=== PATIENT | male | born 1990 | race Caucasian/White ===

== ENCOUNTER → 2016-05-19 | Outpatient (CLI) | payer OTHER ==
[~2016-05-19] MED LIST: ACET-654 PO; FLOM5CAP PO; PERC5TAB6 PO
[2016-05-19 11:23] LABS: CALCIUM LEVEL 9.1 MG/DL (8.5-10.1); CREATININE FOR GFR 4.54 MG/DL (0.70-1.30); GLOMERULAR FILTRATION RATE 16.6 (>60); POTASSIUM SERUM 3.8 MEQ/L (3.5-5.1)
== END ==
LOC: M LAB 10:06
PROVIDERS: ATTEND Registered Nurse
DX: N18.5 Chronic kidney disease, stage 5 (principal)

== ENCOUNTER → 2016-05-19 | Outpatient (CLI) | payer OTHER | LOC: M LAB 10:02 | PROVIDERS: ATTEND Physician Assistant Medical | DX: N18.4 Chronic kidney disease, stage 4 (severe) (principal) ==

== ENCOUNTER → 2016-06-29 | Outpatient (CLI) | payer OTHER | LOC: M LAB 13:11 | PROVIDERS: ATTEND Registered Nurse | DX: N18.5 Chronic kidney disease, stage 5 (principal) ==

== ENCOUNTER → 2016-06-29 | Outpatient (CLI) | payer OTHER ==
[2016-06-29 14:20] LABS: CALCIUM LEVEL 9.4 MG/DL (8.5-10.1); CREATININE FOR GFR 4.71 MG/DL (0.70-1.30); POTASSIUM SERUM 3.4 MEQ/L (3.5-5.1)
== END ==
LOC: M LAB 13:14
PROVIDERS: ATTEND Physician Assistant Medical
DX: N18.4 Chronic kidney disease, stage 4 (severe) (principal)

== ENCOUNTER 2016-08-07 04:12 | Emergency (ER) | payer OTHER ==
[~2016-08-07] VITALS: Ht 177.8 cm; Wt 68.0 kg
[2016-08-07] MEDS ORDERED: OXYCODONE/APAP 5MG/325MG(BULK FOR ED) 1 TABLET PO ONE (05:30)
[2016-08-07] MEDS ORDERED: METHOCARBAMOL 500 MG TAB PO ONE (05:30)
[2016-08-07] MEDS ORDERED: predniSONE 20 MG TAB PO ONE (05:30)
[2016-08-07 05:54] VITALS: BP 128/72
== END 2016-08-07 05:57 | disposition home or self-care (01) ==
LOC: M ED 05:15
DX: M54.31 Sciatica, right side (principal)

== ENCOUNTER → 2016-11-12 | Outpatient (CLI) | payer OTHER ==
[~2016-11-12] MED LIST changes: -ACET-654 PO; +ACET1TAB17 PO; +PERC5TAB12 PO; -PERC5TAB6 PO
[2016-11-12 15:10] LABS: CALCIUM LEVEL 9.2 MG/DL (8.5-10.1); CREATININE FOR GFR 5.21 MG/DL (0.70-1.30); GLOMERULAR FILTRATION RATE 14.2 (>60); POTASSIUM SERUM 3.7 MEQ/L (3.5-5.1)
== END ==
LOC: M LAB 14:20
PROVIDERS: ATTEND Physician Assistant Medical
DX: N18.4 Chronic kidney disease, stage 4 (severe) (principal)

== ENCOUNTER → 2016-11-12 | Outpatient (CLI) | payer OTHER | LOC: M LAB 14:04 | PROVIDERS: ATTEND Registered Nurse | DX: N18.9 Chronic kidney disease, unspecified (principal) ==

== ENCOUNTER → 2017-01-25 | Outpatient (CLI) | payer OTHER | LOC: M LAB 13:23 | PROVIDERS: ATTEND Registered Nurse | DX: N18.4 Chronic kidney disease, stage 4 (severe) (principal); Z76.82 Awaiting organ transplant status ==

== ENCOUNTER → 2017-01-25 | Outpatient (CLI) | payer OTHER ==
[2017-01-25 14:32] LABS: CALCIUM LEVEL 9.2 MG/DL (8.5-10.1); CREATININE FOR GFR 4.84 MG/DL (0.70-1.30); GLOMERULAR FILTRATION RATE 15.5 (>60); POTASSIUM SERUM 3.7 MEQ/L (3.5-5.1)
== END ==
LOC: M LAB 13:28
PROVIDERS: ATTEND Physician Assistant Medical
DX: N18.4 Chronic kidney disease, stage 4 (severe) (principal)

== ENCOUNTER → 2017-05-07 | Outpatient (CLI) | payer OTHER | LOC: M LAB 10:06 | DX: Z94.0 Kidney transplant status (principal) | CPT/HCPCS: 36415 ==

== ENCOUNTER → 2017-05-07 | Outpatient (CLI) | payer OTHER ==
[2017-05-07 11:09] LABS: ANION GAP 8 MEQ/L (8-16); BLOOD UREA NITROGEN 42 MG/DL (7-18); CALCIUM LEVEL 8.8 MG/DL (8.5-10.1); CARBON DIOXIDE LEVEL 26 MEQ/L (21-32); CHLORIDE LEVEL 107 MEQ/L (98-107); CREATININE FOR GFR 4.85 MG/DL (0.70-1.30); GLOMERULAR FILTRATION RATE 15.3 (>60); GLUCOSE, FASTING 98 MG/DL (70-105); POTASSIUM SERUM 3.3 MEQ/L (3.5-5.1); SODIUM LEVEL 141 MEQ/L (136-145)
== END ==
LOC: M LAB 10:11
DX: N18.4 Chronic kidney disease, stage 4 (severe) (principal)
CPT/HCPCS: 80048

== ENCOUNTER → 2017-07-02 | Outpatient (CLI) | payer OTHER ==
[2017-07-02 15:49] LABS: ANION GAP 8 MEQ/L (8-16); BLOOD UREA NITROGEN 45 MG/DL (7-18); CALCIUM LEVEL 8.9 MG/DL (8.5-10.1); CARBON DIOXIDE LEVEL 27 MEQ/L (21-32); CHLORIDE LEVEL 106 MEQ/L (98-107); CREATININE FOR GFR 4.62 MG/DL (0.70-1.30); GLOMERULAR FILTRATION RATE 16.2 (>60); GLUCOSE, FASTING 95 MG/DL (70-100); POTASSIUM SERUM 3.7 MEQ/L (3.5-5.1); SODIUM LEVEL 141 MEQ/L (136-145)
== END ==
LOC: M LAB 14:31
DX: N18.4 Chronic kidney disease, stage 4 (severe) (principal)
CPT/HCPCS: 80048

== ENCOUNTER → 2017-07-02 | Outpatient (CLI) | payer OTHER | LOC: M LAB 14:26 | DX: Z76.82 Awaiting organ transplant status (principal); N18.9 Chronic kidney disease, unspecified ==

== ENCOUNTER → 2017-08-05 | Outpatient (CLI) | payer OTHER ==
[2017-08-05 18:37] LABS: ANION GAP 7 MEQ/L (8-16); BLOOD UREA NITROGEN 49 MG/DL (7-18); CALCIUM LEVEL 8.7 MG/DL (8.5-10.1); CARBON DIOXIDE LEVEL 27 MEQ/L (21-32); CHLORIDE LEVEL 108 MEQ/L (98-107); CREATININE FOR GFR 4.14 MG/DL (0.70-1.30); GLOMERULAR FILTRATION RATE 18.4 (>60); GLUCOSE, FASTING 109 MG/DL (70-100); POTASSIUM SERUM 3.5 MEQ/L (3.5-5.1); SODIUM LEVEL 142 MEQ/L (136-145)
== END ==
LOC: M LAB 16:52
DX: N18.4 Chronic kidney disease, stage 4 (severe) (principal)
CPT/HCPCS: 80048

== ENCOUNTER → 2017-08-10 | Outpatient (CLI) | payer OTHER | LOC: M LAB 18:22 | DX: N18.9 Chronic kidney disease, unspecified (principal) | CPT/HCPCS: 36415 ==

== ENCOUNTER → 2017-10-01 | Outpatient (CLI) | payer OTHER | LOC: M LAB 09:55 | DX: N18.5 Chronic kidney disease, stage 5 (principal) | CPT/HCPCS: 36415 ==

== ENCOUNTER → 2017-12-29 | Outpatient (CLI) | payer OTHER | LOC: M LAB 14:57 | DX: N18.5 Chronic kidney disease, stage 5 (principal) | CPT/HCPCS: 99001 ==

== ENCOUNTER → 2018-03-02 | Outpatient (CLI) | payer OTHER ==
[2018-03-02 15:00] LABS: AMORPHOUS SEDIMENT SMALL (NEGATIVE); APPEARANCE, URINE CLEAR (CLEAR); BACTERIA, URINE AUTO NEGATIVE (NEGATIVE); BILIRUBIN, URINE AUTO NEGATIVE (NEGATIVE); BLOOD, URINE BLOOD 1+ (NEGATIVE); COLOR, URINE STRAW (YELLOW); GLUCOSE, URINE (UA) AUTO 2+ mg/dL (NEGATIVE); KETONE, URINE AUTO TRACE mg/dL (NEGATIVE); LEUKOCYTE ESTERASE, URINE AUTO NEGATIVE (NEGATIVE); MUCUS, URINE SMALL (NEGATIVE); NITRITE, URINE AUTO NEGATIVE (NEGATIVE); PROTEIN, URINE AUTO 2+ mg/dL (NEGATIVE); RBC, URINE AUTO 1 /HPF (0-3); SPECIFIC GRAVITY URINE AUTO 1.009 (1.002-1.035); SQUAMOUS EPITHELIAL CELL UR AU 0 /HPF (0-6); UROBILINOGEN, URINE AUTO 0.2 mg/dL (0.0-2.0); WBC, URINE AUTO 0 /HPF (0-3)
[2018-03-02 15:07] LABS: ANION GAP 9 MEQ/L (8-16); BLOOD UREA NITROGEN 36 MG/DL (7-18); CALCIUM LEVEL 9.2 MG/DL (8.5-10.1); CARBON DIOXIDE LEVEL 25 MEQ/L (21-32); CHLORIDE LEVEL 107 MEQ/L (98-107); CREATININE FOR GFR 5.37 MG/DL (0.70-1.30); CREATININE,RANDOM URINE 64.3 MG/DL; GLOMERULAR FILTRATION RATE 13.6 (>60); GLUCOSE, FASTING 112 MG/DL (70-100); POTASSIUM SERUM 3.6 MEQ/L (3.5-5.1); SODIUM LEVEL 141 MEQ/L (136-145)
[2018-03-02 16:20] LABS: PTH INTACT 67.5 PG/ML (18.5-88.0)
== END ==
LOC: M LAB 13:42
DX: N18.9 Chronic kidney disease, unspecified (principal)
CPT/HCPCS: 82570

== ENCOUNTER → 2018-03-02 | Outpatient (CLI) | payer OTHER | LOC: M LAB 13:49 | DX: N18.5 Chronic kidney disease, stage 5 (principal) ==

== ENCOUNTER → 2018-06-21 | Outpatient (CLI) | payer MEDICAID, OTHER, SELFPAY ==
[~2018-06-21] MED LIST changes: -ACET1TAB17 PO; +ACET1TAB55 PO; +FLOM0.4C39 PO; -FLOM5CAP PO
== END ==
LOC: M LAB 13:33
PROVIDERS: ATTEND Physician Assistant Surgical
DX: N18.5 Chronic kidney disease, stage 5 (principal)

== ENCOUNTER → 2018-09-09 | Outpatient (CLI) | payer OTHER ==
[2018-09-09 12:42] LABS: CALCIUM LEVEL 9.2 MG/DL (8.5-10.1); CREATININE FOR GFR 4.3 MG/DL (0.70-1.30); GLOMERULAR FILTRATION RATE 17.5 (>60); POTASSIUM SERUM 3.2 MEQ/L (3.5-5.1)
== END ==
LOC: M LAB 11:41
PROVIDERS: ATTEND Internal Medicine
DX: N18.5 Chronic kidney disease, stage 5 (principal)

== ENCOUNTER → 2018-09-09 | Outpatient (CLI) | payer OTHER | LOC: M LAB 11:45 | PROVIDERS: ATTEND Physician Assistant Surgical | DX: Z53.9 Procedure and treatment not carried out, unspecified reason (principal); N18.5 Chronic kidney disease, stage 5 ==

== ENCOUNTER → 2019-07-28 | Outpatient (REF) | payer OTHER ==
[2019-07-28 12:44] LABS: HEMATOCRIT 32.9 % (42.0-52.0); HEMOGLOBIN 10.9 g/dl (13.5-17.5); MEAN CORPUSCULAR HEMOGLOBIN 31.9 pg (27.0-33.0); MEAN CORPUSCULAR HGB CONC 33.1 g/dl (32.0-36.5); MEAN CORPUSCULAR VOLUME 96.2 fl (80.0-96.0); PLATELET COUNT, AUTOMATED 237 10^3/uL (150-450); RED BLOOD COUNT 3.42 10^6/uL (4.30-6.10)
[2019-07-28 13:11] LABS: ALBUMIN 4.1 GM/DL (3.2-5.2); BILIRUBIN,TOTAL 0.3 MG/DL (0.2-1.0); CALCIUM LEVEL 8.5 MG/DL (8.5-10.1); CREATININE FOR GFR 5.42 MG/DL (0.70-1.30); GLOMERULAR FILTRATION RATE 13.3 (>60); POTASSIUM SERUM 3.8 MEQ/L (3.5-5.1); TOTAL PROTEIN 7.4 GM/DL (6.4-8.2)
== END ==
LOC: M SFHCADAM 09:38
PROVIDERS: ATTEND Family Medicine
DX: N39.0 Urinary tract infection, site not specified (principal); N18.4 Chronic kidney disease, stage 4 (severe); Q61.5 Medullary cystic kidney

== ENCOUNTER → 2019-08-11 | Outpatient (REF) | payer OTHER ==
[2019-08-11 21:42] LABS: HEMATOCRIT 32.1 % (42.0-52.0); HEMOGLOBIN 10.5 g/dl (13.5-17.5); MEAN CORPUSCULAR HEMOGLOBIN 31.5 pg (27.0-33.0); MEAN CORPUSCULAR HGB CONC 32.7 g/dl (32.0-36.5); MEAN CORPUSCULAR VOLUME 96.4 fl (80.0-96.0); PLATELET COUNT, AUTOMATED 261 10^3/uL (150-450); RED BLOOD COUNT 3.33 10^6/uL (4.30-6.10)
[2019-08-11 22:09] LABS: CALCIUM LEVEL 8.7 MG/DL (8.5-10.1); CREATININE FOR GFR 5.32 MG/DL (0.70-1.30); GLOMERULAR FILTRATION RATE 13.6 (>60)
== END ==
LOC: M LABDRWAD 09:26
PROVIDERS: ATTEND Physician Assistant Medical
DX: N18.4 Chronic kidney disease, stage 4 (severe) (principal); D63.1 Anemia in chronic kidney disease

== ENCOUNTER → 2019-10-18 | Outpatient (CLI) | payer OTHER | LOC: M LAB 14:29 | PROVIDERS: ATTEND Internal Medicine Nephrology | DX: N18.6 End stage renal disease (principal) ==

== ENCOUNTER → 2019-12-15 | Outpatient (CLI) | payer OTHER | LOC: M LAB 12:12 | PROVIDERS: ATTEND Internal Medicine Nephrology | DX: Z53.9 Procedure and treatment not carried out, unspecified reason (principal) ==

== ENCOUNTER → 2019-12-15 | Outpatient (CLI) | payer OTHER ==
[2020-01-13 01:18] LABS: HEMATOCRIT 36.7 % (42.0-52.0); HEMOGLOBIN 12.2 g/dl (13.5-17.5); MEAN CORPUSCULAR HEMOGLOBIN 31.2 pg (27.0-33.0); MEAN CORPUSCULAR HGB CONC 33.2 g/dl (32.0-36.5); MEAN CORPUSCULAR VOLUME 93.9 fl (80.0-96.0); PLATELET COUNT, AUTOMATED 274 10^3/uL (150-450); RED BLOOD COUNT 3.91 10^6/uL (4.30-6.10); WHITE BLOOD COUNT 8.7 10^3/uL (4.0-10.0)
[2020-01-31 04:44] LABS: CREATININE FOR GFR 5.28 MG/DL (0.70-1.30); GLOMERULAR FILTRATION RATE 13.7 (>60); POTASSIUM SERUM 3.7 MEQ/L (3.5-5.1)
== END ==
LOC: M LAB 12:12
PROVIDERS: ATTEND Physician Assistant Medical
DX: N18.4 Chronic kidney disease, stage 4 (severe) (principal)

== ENCOUNTER → 2020-01-25 | Outpatient (CLI) | payer OTHER ==
[2020-01-25 13:37] LABS: HEMATOCRIT 35.9 % (42.0-52.0); HEMOGLOBIN 11.8 g/dl (13.5-17.5); MEAN CORPUSCULAR HEMOGLOBIN 31.5 pg (27.0-33.0); MEAN CORPUSCULAR HGB CONC 32.9 g/dl (32.0-36.5); MEAN CORPUSCULAR VOLUME 95.7 fl (80.0-96.0); PLATELET COUNT, AUTOMATED 255 10^3/uL (150-450); RED BLOOD COUNT 3.75 10^6/uL (4.30-6.10); WHITE BLOOD COUNT 5.9 10^3/uL (4.0-10.0)
[2020-01-25 14:05] LABS: CALCIUM LEVEL 9.1 MG/DL (8.5-10.1); CREATININE FOR GFR 5.54 MG/DL (0.70-1.30)
== END ==
LOC: M LAB 13:09
PROVIDERS: ATTEND Physician Assistant Medical
DX: N18.4 Chronic kidney disease, stage 4 (severe) (principal)

== ENCOUNTER → 2020-01-25 | Outpatient (CLI) | payer OTHER | LOC: M LAB 13:12 | PROVIDERS: ATTEND Internal Medicine Nephrology | DX: N18.6 End stage renal disease (principal) ==

== ENCOUNTER → 2020-02-21 | Outpatient (CLI) | payer OTHER ==
[2020-02-21 12:45] LABS: HEMATOCRIT 35.3 % (42.0-52.0); HEMOGLOBIN 11.9 g/dl (13.5-17.5); MEAN CORPUSCULAR HGB CONC 33.7 g/dl (32.0-36.5); MEAN CORPUSCULAR VOLUME 94.9 fl (80.0-96.0); PLATELET COUNT, AUTOMATED 245 10^3/uL (150-450); RED BLOOD COUNT 3.72 10^6/uL (4.30-6.10); WHITE BLOOD COUNT 5.4 10^3/uL (4.0-10.0)
[2020-02-21 13:12] LABS: CALCIUM LEVEL 9.2 MG/DL (8.5-10.1); CREATININE FOR GFR 6.42 MG/DL (0.70-1.30); GLOMERULAR FILTRATION RATE 10.9 (>60); POTASSIUM SERUM 3.9 MEQ/L (3.5-5.1)
== END ==
LOC: M LAB 12:08
PROVIDERS: ATTEND Physician Assistant Medical
DX: N18.4 Chronic kidney disease, stage 4 (severe) (principal)

== ENCOUNTER → 2020-02-21 | Outpatient (CLI) | payer OTHER | LOC: M LAB 12:05 | PROVIDERS: ATTEND Internal Medicine Nephrology | DX: N18.6 End stage renal disease (principal) ==

== ENCOUNTER → 2020-04-25 | Outpatient (CLI) | payer OTHER ==
[2020-04-25 13:50] LABS: HEMATOCRIT 34.4 % (42.0-52.0); MEAN CORPUSCULAR HEMOGLOBIN 30.5 pg (27.0-33.0); MEAN CORPUSCULAR VOLUME 95.3 fl (80.0-96.0); PLATELET COUNT, AUTOMATED 217 10^3/uL (150-450); RED BLOOD COUNT 3.61 10^6/uL (4.30-6.10); WHITE BLOOD COUNT 5.8 10^3/uL (4.0-10.0)
[2020-04-25 14:19] LABS: CALCIUM LEVEL 9.2 MG/DL (8.5-10.1); CREATININE FOR GFR 5.12 MG/DL (0.70-1.30); GLOMERULAR FILTRATION RATE 14.1 (>60); POTASSIUM SERUM 3.6 MEQ/L (3.5-5.1)
== END ==
LOC: M LAB 11:57
PROVIDERS: ATTEND Physician Assistant Medical
DX: N18.4 Chronic kidney disease, stage 4 (severe) (principal)

== ENCOUNTER → 2020-04-25 | Outpatient (CLI) | payer OTHER | LOC: M LAB 11:54 | PROVIDERS: ATTEND Physician Assistant Surgical | DX: N18.6 End stage renal disease (principal) ==

== ENCOUNTER → 2020-05-24 | Outpatient (CLI) | payer OTHER | LOC: M LAB 10:39 | PROVIDERS: ATTEND Physician Assistant Surgical | DX: Z53.9 Procedure and treatment not carried out, unspecified reason (principal); N18.6 End stage renal disease ==

== ENCOUNTER → 2020-05-24 | Outpatient (CLI) | payer OTHER | LOC: M LAB 10:42 | PROVIDERS: ATTEND Physician Assistant Medical | DX: Z53.9 Procedure and treatment not carried out, unspecified reason (principal); N18.4 Chronic kidney disease, stage 4 (severe) ==

== ENCOUNTER → 2020-05-30 | Outpatient (CLI) | payer OTHER ==
[2020-05-30 12:31] LABS: HEMOGLOBIN 11.2 g/dl (13.5-17.5); MEAN CORPUSCULAR HEMOGLOBIN 30.9 pg (27.0-33.0); MEAN CORPUSCULAR HGB CONC 32.9 g/dl (32.0-36.5); MEAN CORPUSCULAR VOLUME 93.7 fl (80.0-96.0); PLATELET COUNT, AUTOMATED 240 10^3/uL (150-450); RED BLOOD COUNT 3.63 10^6/uL (4.30-6.10); WHITE BLOOD COUNT 5.4 10^3/uL (4.0-10.0)
[2020-05-30 13:04] LABS: CALCIUM LEVEL 9.5 MG/DL (8.5-10.1); CREATININE FOR GFR 5.29 MG/DL (0.70-1.30); GLOMERULAR FILTRATION RATE 13.6 (>60); POTASSIUM SERUM 3.8 MEQ/L (3.5-5.1)
== END ==
LOC: M LAB 11:28
PROVIDERS: ATTEND Physician Assistant Medical
DX: N18.4 Chronic kidney disease, stage 4 (severe) (principal)

== ENCOUNTER → 2020-05-30 | Outpatient (CLI) | payer OTHER | LOC: M LAB 11:21 | PROVIDERS: ATTEND Physician Assistant Surgical | DX: N18.6 End stage renal disease (principal) ==

== ENCOUNTER → 2020-07-18 | Outpatient (CLI) | payer OTHER ==
[2020-07-18 12:04] LABS: HEMATOCRIT 36.1 % (42.0-52.0); MEAN CORPUSCULAR HEMOGLOBIN 31.4 pg (27.0-33.0); MEAN CORPUSCULAR HGB CONC 33.2 g/dl (32.0-36.5); MEAN CORPUSCULAR VOLUME 94.5 fl (80.0-96.0); PLATELET COUNT, AUTOMATED 240 10^3/uL (150-450); RED BLOOD COUNT 3.82 10^6/uL (4.30-6.10); WHITE BLOOD COUNT 4.9 10^3/uL (4.0-10.0)
[2020-07-18 12:26] LABS: CALCIUM LEVEL 9.1 MG/DL (8.5-10.1); CREATININE FOR GFR 5.2 MG/DL (0.70-1.30); GLOMERULAR FILTRATION RATE 13.8 (>60); POTASSIUM SERUM 4.1 MEQ/L (3.5-5.1)
== END ==
LOC: M LAB 11:00
PROVIDERS: ATTEND Internal Medicine Nephrology
DX: N18.9 Chronic kidney disease, unspecified (principal)

== ENCOUNTER → 2020-07-18 | Outpatient (CLI) | payer OTHER | LOC: M LAB 10:59 | PROVIDERS: ATTEND Physician Assistant Medical | DX: N18.4 Chronic kidney disease, stage 4 (severe) (principal); D63.1 Anemia in chronic kidney disease ==

== ENCOUNTER → 2020-10-08 | Outpatient (CLI) | payer OTHER | LOC: M LAB 13:13 | PROVIDERS: ATTEND Internal Medicine Nephrology | DX: N18.4 Chronic kidney disease, stage 4 (severe) (principal); D63.1 Anemia in chronic kidney disease ==

== ENCOUNTER → 2020-10-08 | Outpatient (CLI) | payer OTHER ==
[2020-10-08 14:03] LABS: HEMATOCRIT 32.8 % (42.0-52.0); HEMOGLOBIN 10.7 g/dl (13.5-17.5); MEAN CORPUSCULAR HEMOGLOBIN 30.7 pg (27.0-33.0); MEAN CORPUSCULAR HGB CONC 32.6 g/dl (32.0-36.5); MEAN CORPUSCULAR VOLUME 94.3 fl (80.0-96.0); PLATELET COUNT, AUTOMATED 224 10^3/uL (150-450); RED BLOOD COUNT 3.48 10^6/uL (4.30-6.10); WHITE BLOOD COUNT 4.4 10^3/uL (4.0-10.0)
[2020-10-08 14:29] LABS: CALCIUM LEVEL 8.8 MG/DL (8.5-10.1); CREATININE FOR GFR 5.6 MG/DL (0.70-1.30); GLOMERULAR FILTRATION RATE 12.7 (>60); POTASSIUM SERUM 3.3 MEQ/L (3.5-5.1)
== END ==
LOC: M LAB 13:17
PROVIDERS: ATTEND Physician Assistant Medical
DX: N18.4 Chronic kidney disease, stage 4 (severe) (principal); D63.1 Anemia in chronic kidney disease

== ENCOUNTER → 2020-11-25 | Outpatient (CLI) | payer OTHER ==
[2020-11-25 11:50] LABS: HEMATOCRIT 35.1 % (42.0-52.0); HEMOGLOBIN 11.6 g/dl (13.5-17.5); MEAN CORPUSCULAR HEMOGLOBIN 30.9 pg (27.0-33.0); MEAN CORPUSCULAR VOLUME 93.6 fl (80.0-96.0); PLATELET COUNT, AUTOMATED 229 10^3/uL (150-450); RED BLOOD COUNT 3.75 10^6/uL (4.30-6.10); WHITE BLOOD COUNT 4.6 10^3/uL (4.0-10.0)
[2020-11-25 12:16] LABS: CALCIUM LEVEL 9.1 MG/DL (8.5-10.1); CREATININE FOR GFR 5.57 MG/DL (0.70-1.30); GLOMERULAR FILTRATION RATE 12.8 (>60); POTASSIUM SERUM 3.8 MEQ/L (3.5-5.1)
== END ==
LOC: M LAB 11:06
PROVIDERS: ATTEND Physician Assistant Medical
DX: N18.4 Chronic kidney disease, stage 4 (severe) (principal); D63.1 Anemia in chronic kidney disease

== ENCOUNTER → 2020-11-25 | Outpatient (CLI) | payer OTHER | LOC: M LAB 11:10 | PROVIDERS: ATTEND Internal Medicine Nephrology | DX: Z53.8 Procedure and treatment not carried out for other reasons (principal) ==

== ENCOUNTER → 2021-02-11 | Outpatient (CLI) | payer OTHER | LOC: M LAB 07:45 | PROVIDERS: ATTEND Physician Assistant Medical | DX: N18.4 Chronic kidney disease, stage 4 (severe) (principal) ==

== ENCOUNTER → 2021-02-11 | Outpatient (CLI) | payer OTHER ==
[2021-02-11 08:18] LABS: HEMATOCRIT 33.7 % (42.0-52.0); HEMOGLOBIN 11.3 g/dl (13.5-17.5); MEAN CORPUSCULAR HEMOGLOBIN 30.9 pg (27.0-33.0); MEAN CORPUSCULAR HGB CONC 33.5 g/dl (32.0-36.5); MEAN CORPUSCULAR VOLUME 92.1 fl (80.0-96.0); PLATELET COUNT, AUTOMATED 208 10^3/uL (150-450); RED BLOOD COUNT 3.66 10^6/uL (4.30-6.10); WHITE BLOOD COUNT 5.7 10^3/uL (4.0-10.0)
[2021-02-11 08:40] LABS: CREATININE FOR GFR 5.93 MG/DL (0.70-1.30); GLOMERULAR FILTRATION RATE 11.9 (>60); POTASSIUM SERUM 3.2 MEQ/L (3.5-5.1)
== END ==
LOC: M LAB 07:43
PROVIDERS: ATTEND Internal Medicine Nephrology
DX: N18.9 Chronic kidney disease, unspecified (principal)

== ENCOUNTER → 2021-04-15 | Outpatient (CLI) | payer OTHER | LOC: M LAB 11:26 | PROVIDERS: ATTEND Internal Medicine Nephrology | DX: N18.9 Chronic kidney disease, unspecified (principal) ==

== ENCOUNTER → 2021-04-15 | Outpatient (CLI) | payer OTHER ==
[2021-04-15 12:16] LABS: HEMATOCRIT 34.7 % (42.0-52.0); HEMOGLOBIN 11.6 g/dl (13.5-17.5); MEAN CORPUSCULAR HEMOGLOBIN 30.9 pg (27.0-33.0); MEAN CORPUSCULAR HGB CONC 33.4 g/dl (32.0-36.5); MEAN CORPUSCULAR VOLUME 92.5 fl (80.0-96.0); PLATELET COUNT, AUTOMATED 231 10^3/uL (150-450); RED BLOOD COUNT 3.75 10^6/uL (4.30-6.10); WHITE BLOOD COUNT 4.8 10^3/uL (4.0-10.0)
[2021-04-15 12:43] LABS: CALCIUM LEVEL 9.3 MG/DL (8.5-10.1); CREATININE FOR GFR 6.81 MG/DL (0.70-1.30); GLOMERULAR FILTRATION RATE 10.1 (>60); POTASSIUM SERUM 3.5 MEQ/L (3.5-5.1)
== END ==
LOC: M LAB 11:23
PROVIDERS: ATTEND Physician Assistant Medical
DX: N18.4 Chronic kidney disease, stage 4 (severe) (principal); D63.1 Anemia in chronic kidney disease

== ENCOUNTER → 2021-05-20 | Outpatient (CLI) | payer OTHER | LOC: M SOG 08:34 | PROVIDERS: ATTEND Orthopaedic Surgery Hand Surgery | DX: M67.442 Ganglion, left hand (principal) ==

== ENCOUNTER → 2021-06-12 | Outpatient (CLI) | payer OTHER | LOC: M LAB 09:02 | PROVIDERS: ATTEND Physician Assistant Surgical | DX: Z53.9 Procedure and treatment not carried out, unspecified reason (principal) ==

== ENCOUNTER → 2021-06-12 | Outpatient (CLI) | payer OTHER ==
[2021-06-12 09:45] LABS: HEMATOCRIT 30.9 % (42.0-52.0); HEMOGLOBIN 9.9 g/dl (13.5-17.5); MEAN CORPUSCULAR HEMOGLOBIN 30.4 pg (27.0-33.0); MEAN CORPUSCULAR VOLUME 94.8 fl (80.0-96.0); PLATELET COUNT, AUTOMATED 194 10^3/uL (150-450); RED BLOOD COUNT 3.26 10^6/uL (4.30-6.10); WHITE BLOOD COUNT 4.3 10^3/uL (4.0-10.0)
[2021-06-12 10:22] LABS: CALCIUM LEVEL 8.7 MG/DL (8.5-10.1); CREATININE FOR GFR 6.56 MG/DL (0.70-1.30); GLOMERULAR FILTRATION RATE 10.5 (>60); POTASSIUM SERUM 3.8 MEQ/L (3.5-5.1)
== END ==
LOC: M LAB 09:00
PROVIDERS: ATTEND Physician Assistant Medical
DX: N18.5 Chronic kidney disease, stage 5 (principal)

== ENCOUNTER → 2021-10-27 | Outpatient (CLI) | payer OTHER | LOC: M LAB 12:33 | PROVIDERS: ATTEND Internal Medicine Nephrology | DX: N18.9 Chronic kidney disease, unspecified (principal); Z53.9 Procedure and treatment not carried out, unspecified reason ==

== ENCOUNTER → 2021-12-18 | Outpatient (CLI) | payer OTHER ==
[2021-12-18 17:06] LABS: CALCIUM LEVEL 8.8 MG/DL (8.5-10.1); CREATININE FOR GFR 5.6 MG/DL (0.70-1.30); GLOMERULAR FILTRATION RATE 12.6 (>60); POTASSIUM SERUM 3.9 MEQ/L (3.5-5.1)
== END ==
LOC: M LAB 15:02
PROVIDERS: ATTEND Physician Assistant Medical
DX: M00-M99 Diseases of the musculoskeletal system and connective tissue (principal)

== ENCOUNTER 2023-08-15 21:18 | Inpatient (IN) | payer OTHER ==
[~2023-08-15] VITALS: Ht 177.8 cm; Wt 64.5 kg
[2023-08-15] MEDS ORDERED: CALC1CAP31 PO (21:27)
[2023-08-15 21:45] LABS: BASO % 0.5 % (0.0-1.0); EOS # 0.1 10^3/uL (0.0-0.5); EOS % 1.6 % (0.0-3.0); HEMATOCRIT 30.6 % (42.0-52.0); HEMOGLOBIN 10.3 g/dl (13.5-17.5); LYMPH # 1.5 10^3/uL (1.5-5.0); LYMPH % 26.8 % (24.0-44.0); MEAN CORPUSCULAR HEMOGLOBIN 31.4 pg (27.0-33.0); MEAN CORPUSCULAR HGB CONC 33.7 g/dl (32.0-36.5); MEAN CORPUSCULAR VOLUME 93.3 fl (80.0-96.0); MONO # 0.3 10^3/uL (0.0-0.8); MONO % 5.8 % (2.0-8.0); NEUTROPHILS # 3.6 10^3/uL (1.5-8.5); NEUTROPHILS % 65.1 % (36.0-66.0); PLATELET COUNT, AUTOMATED 211 10^3/uL (150-450); RED BLOOD COUNT 3.28 10^6/uL (4.30-6.10); WHITE BLOOD COUNT 5.5 10^3/uL (4.0-10.0)
[2023-08-15] MEDS: MORPHINE 4 MG/ML 1ML VIAL IV ONE (21:47)
[2023-08-15 22:17] LABS: LIPASE 76 U/L (12-53)
[2023-08-15 22:19] LABS: ALBUMIN 4.4 G/DL (3.2-5.2); ALKALINE PHOSPHATASE 83 U/L (46-116); ALT/SGPT 22 U/L (7.0-40); AST/SGOT 16 U/L (<34); BILIRUBIN,DIRECT < 0.1 MG/DL (<0.4); BILIRUBIN,TOTAL 0.3 MG/DL (0.3-1.2); TOTAL PROTEIN 7.3 G/DL (5.7-8.2)
[2023-08-15] MEDS: HYDROMORPHONE HCL 0.5 MG/ 0.5 ML SYRINGE IV ONE (23:24)
[2023-08-16] MEDS: NS 1,000 ML IV SCH ×2 (01:27→02:22)
[2023-08-16] MEDS: TAMSULOSIN 0.4 MG CAP PO ONE (01:27)
[2023-08-16] MEDS: ACETAMINOPHEN *IV* 1,000 MG in IV 1 EA IV STA (02:22)
[2023-08-16] MEDS: PERCOCET 5MG/325MG TAB PO PRN (02:23)
[2023-08-16] MEDS ORDERED: VITA200020 PO (02:46)
[2023-08-16] MEDS ORDERED: HOME MED LIST COMPLETE! XX SCH (02:50)
[2023-08-16 04:30] VITALS: BP 119/66; TEMP 98.3; O2SAT 100
[2023-08-16] MEDS: HYDROMORPHONE HCL 0.5 MG/ 0.5 ML SYRINGE IV PRN (05:31)
[2023-08-16 06:37] LABS: BILIRUBIN,TOTAL 0.3 MG/DL (0.3-1.2); CALCIUM LEVEL 7.9 MG/DL (8.5-10.1); CREATININE FOR GFR 6.6 MG/DL (0.70-1.30); GLOMERULAR FILTRATION RATE 10.3 (>60); POTASSIUM SERUM 3.9 MMOL/L (3.5-5.1); TOTAL PROTEIN 6.7 G/DL (5.7-8.2)
[2023-08-16] MEDS: DOCUSATE SODIUM 100MG CAPSULE PO SCH (09:00)
[2023-08-16] MEDS: SENNA 8.6 MG TAB (SENOKOT) PO SCH (09:00)
[2023-08-16 10:14] VITALS: BP 115/63; TEMP 98; O2SAT 99
[2023-08-16 14:14] VITALS: BP 108/64; TEMP 97.8; O2SAT 99
[2023-08-16 18:27] VITALS: BP 109/62; TEMP 98.5; O2SAT 100
[2023-08-16] MEDS: ACETAMINOPHEN TAB 650MG DOSE (2X325MG) PO PRN (19:52)
[2023-08-16] MEDS: ONDANSETRON 4MG 2ML VIAL IV PRN (19:52)
[2023-08-16] MEDS: TAMSULOSIN 0.4 MG CAP PO SCH (21:05)
[2023-08-16 21:07] VITALS: BP 125/57; TEMP 97.5; O2SAT 100
[2023-08-17 02:11] VITALS: BP 122/59; TEMP 97.4; O2SAT 100
[2023-08-17 05:26] LABS: CALCIUM LEVEL 7.6 MG/DL (8.5-10.1); CREATININE FOR GFR 6.82 MG/DL (0.70-1.30); GLOMERULAR FILTRATION RATE 9.9 (>60); POTASSIUM SERUM 4.3 MMOL/L (3.5-5.1)
[2023-08-17 05:48] VITALS: BP 118/57; TEMP 97.6; O2SAT 99
[2023-08-17] MEDS ORDERED: ISOVUE-300 61% 100ML VIAL As Ordered ONE (12:24)
== END 2023-08-17 12:50 | disposition home or self-care (01) | DRG 465 ==
LOC: M ED 21:18 → M ED INP 21:19 → ENRESERV 08-16 03:35 → M MS4PR 08-16 04:30 → OBSVTOIN 08-16 13:41
PROVIDERS: ADMIT Preventive Medicine Undersea and Hyperbaric Medicine; ATTEND Internal Medicine
DX: N13.2 Hydronephrosis with renal and ureteral calculous obstruction (principal); N18.4 Chronic kidney disease, stage 4 (severe); K08.9 Disorder of teeth and supporting structures, unspecified; Z79.899 Other long term (current) drug therapy

== ENCOUNTER 2024-04-04 18:28 | Emergency (ER) | payer MEDICAID, OTHER ==
[~2024-04-04] VITALS: Ht 177.8 cm; Wt 63.4 kg
[~2024-04-04 18:28] MED LIST changes: +CALC1CAP31 PO; +VITA200020 PO
[2024-04-04] MEDS ORDERED: CALC1CAP31 PO (18:49)
[2024-04-04] MEDS: ACETAMINOPHEN 500 MG TAB PO ONE (21:48)
[2024-04-04] MEDS: KETOROLAC 30 MG/ML 1ML VIAL IM ONE (21:51)
[2024-04-04] MEDS: diazePAM 5MG TABLET PO ONE (21:54)
[2024-04-04] MEDS ORDERED: METH-1164 PO (22:49)
[2024-04-04] MEDS ORDERED: NAPR-837 PO (22:49)
[2024-04-04 22:52] VITALS: BP 118/63; TEMP 98.9; O2SAT 98
== END 2024-04-04 22:58 | disposition home or self-care (01) ==
LOC: M ED 18:28
DX: M54.50 Low back pain, unspecified (principal); Z79.899 Other long term (current) drug therapy
CPT/HCPCS: 96372; 99283; J1885